=== PATIENT | female | born 1940 | race Caucasian/White ===

== ENCOUNTER 2017-09-07 08:59 | Emergency (ER) | payer MEDICARE, OTHER ==
[2017-09-07 09:18] VITALS: BP 122/58
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
--- NOTE | 2017-09-08 09:28 | CR ---
Abdomen 1V Flat INDICATION: pain COMPARISON: None FINDINGS: 2 supine views. Large amount stool throughout colon. No signs of obstruction. Faint calculi projected over the left kidney.
== END 2017-09-07 12:06 | disposition home or self-care (01) ==
LOC: JP.ED 08:59
DX: K59.04 Chronic idiopathic constipation (principal); Z88.8 Allergy status to other drugs, medicaments and biological substances; Z88.5 Allergy status to narcotic agent; Z88.1 Allergy status to other antibiotic agents; Z79.899 Other long term (current) drug therapy; E78.00 Pure hypercholesterolemia, unspecified
CPT/HCPCS: 74000; 74000-26; 99283; 99284

== ENCOUNTER 2017-10-17 07:32 | Day surgery (SDC) | payer MEDICARE, OTHER ==
[2017-10-17] MEDS ORDERED: Lactated Ringers 1,000 ML IV SCH (08:15)
[2017-10-17] MEDS ORDERED: fentaNYL 100 MCG/2 ML SDV ONE (09:04)
[2017-10-17] MEDS ORDERED: Midazolam 1 MG/ML 2 ML SDV ONE (09:04)
[2017-10-17] MEDS ORDERED: Propofol 200 MG/20 ML SDV ONE (09:04)
[2017-10-17 10:19] VITALS: BP 120/64
--- NOTE | 2017-10-17 14:41 | OR ---
DATE OF PROCEDURE: 10/17/2017 PREOPERATIVE DIAGNOSIS: History of colon polyps, new onset of constipation. POSTOPERATIVE DIAGNOSIS: Unremarkable colonoscopy; history of colon polyps; new onset constipation, etiology unknown. PROCEDURE: Colonoscopy to the cecum. SURGEON: Rafael Banegas MD. ANESTHESIA: IV anesthesia with monitored anesthesia care. INDICATION: This 77-year-old white female is here for a colonoscopy. She has a history of colon polyps. She has new onset of constipation. Her last colonoscopic exam was done about five years ago. I counseled her for the procedure including risks and alternatives, and she gave her informed consent to proceed. DESCRIPTION OF PROCEDURE: The patient was placed in the left lateral decubitus position. IV anesthesia was administered by the Anesthesia Service. Time-out was held. A rectal exam was performed, which was unremarkable. The flexible video Olympus colonoscope was introduced through her anus, up her rectum, and out her colon all the way to the cecum. Once the cecum was reached, the scope was slowly withdrawn, examining the mucosa throughout. No mucosal abnormalities were noted. The scope was retroflexed in the rectum with the distal rectum appearing unremarkable. The scope was straightened and removed. She tolerated the procedure well. Rafael Banegas MD /[id number]
== END 2017-10-17 10:35 | disposition home or self-care (01) ==
LOC: JP.SDS 07:32
PROVIDERS: ATTEND Surgery
DX: K59.00 Constipation, unspecified (principal); I10 Essential (primary) hypertension; E66.9 Obesity, unspecified; Z87.891 Personal history of nicotine dependence; Z86.010 Personal history of colon polyps; Z79.899 Other long term (current) drug therapy; Z88.1 Allergy status to other antibiotic agents; Z91.041 Radiographic dye allergy status; Z88.8 Allergy status to other drugs, medicaments and biological substances
CPT/HCPCS: 45378; J2250; J2704; J3010; J7120